=== PATIENT | female | born 1975 | race Caucasian/White ===

== ENCOUNTER 2020-02-12 13:09 | Emergency (ER) | payer OTHER, SELFPAY | END 2020-02-12 13:39 | disposition home or self-care (01) | LOC: NAV ERS 13:09 | DX: K02.9 Dental caries, unspecified (principal); I10 Essential (primary) hypertension; F17.210 Nicotine dependence, cigarettes, uncomplicated | CPT/HCPCS: 99282 ==

== ENCOUNTER 2020-04-24 13:10 | Emergency (ER) | payer SELFPAY ==
--- NOTE | 2020-04-24 13:33 | RAD ---
XR Forearm Rt 2 View STANDARD HISTORY: Injury, right forearm pain FINDINGS: The right radius and ulna appear intact.
--- NOTE | 2020-04-24 13:33 | RAD ---
Exam:Right elbow 4 views HISTORY: Pain. Injury. COMPARISON: None FINDINGS: No joint effusion. No fractures or malalignment. Preserved joint spaces. IMPRESSION: Posttraumatic change
== END 2020-04-24 13:45 | disposition home or self-care (01) ==
LOC: NAV ERS 13:10
DX: S40.021A Contusion of right upper arm, initial encounter (principal); I10 Essential (primary) hypertension; G43.909 Migraine, unspecified, not intractable, without status migrainosus; F17.210 Nicotine dependence, cigarettes, uncomplicated; W22.8XXA Striking against or struck by other objects, initial encounter

== ENCOUNTER 2022-07-16 15:08 | Emergency (ER) | payer BC ==
[~2022-07-16 15:08] MED LIST: Iopamidol 370 76% 100 ML VIAL ONE
[2022-07-16] MEDS ORDERED: Morphine 4 MG/ML VIAL ONE (15:47)
[2022-07-16] MEDS ORDERED: Sodium Chloride 0.9% 1,000 ML ONE (15:47)
[2022-07-16] MEDS ORDERED: Ondansetron PF 4 MG/2 ML Vial ONE (15:47)
[2022-07-16 16:21] LABS: #Basophils 0.1 thou/uL (0.0-0.2); #Eosinphils 0.2 thou/uL (0.0-0.7); #Lymphocytes 2.8 thou/uL (1.20-3.40); #Monocytes 0.9 thou/uL (0.11-0.59); #Neutrophils 7.1 thou/uL (1.40-6.50); %Basophils 1.2 % (0.0-1.0); %Eosinophils 2.1 % (0.0-10.0); %Lymphocytes 24.9 % (21.0-51.0); %Monocytes 8.2 % (0.0-10.0); %Neutrophils 63.6 % (42.0-75.0); Mean Corpuscular HGB CONC 33.4 g/dL (32.0-36.0); Mean Corpuscular Hemoglobin 32.7 pg (27.0-31.0); Mean Corpuscular Volume 97.8 fl (78.0-98.0); Mean Platelet Volume 6.6 fL (7.4-10.4); Platelet Count 481 10x3/uL (130-400); Red Blood Cell (RBC) Count 4.58 mill/uL (4.20-5.40); White Blood Cell (WBC) Count 11.2 10x3/uL (4.8-10.8)
[2022-07-16 16:27] LABS: Bilirubin Negative (Negative); Blood, Urine Trace (Negative); Clarity Slightly Cloudy (Clear); Glucose, Urine (Dipstick) Negative (Negative); Ketone, Urine Negative (Negative); Leukocyte Negative (Negative); Nitrite Negative (Negative); Protein, Urine (Dipstick) Negative (Neg-Trace); Specific Gravity, Urine 1.015 (1.005-1.030); Urobilinogen 0.2 mg/dL (Less than 2)
[2022-07-16 16:30] LABS: Pregnancy Test - Urine (BHCG) Negative (Negative); Pregu Control Background? CLEAR/WHITE (CLR/WHITE); Pregu Control Bar Appear? YES (CONTROL BAR); Specific Gravity 1.015 (1.002-1.036)
[2022-07-16 16:32] LABS: RBC/HPF 0-3 HPF (0-3); WBC/HPF 0-3 HPF (0-3)
[2022-07-16 16:33] LABS: Bacteria/HPF Rare-Few HPF (None Seen)
[2022-07-16 16:44] LABS: ALT (SGPT) 10 U/L (8-55); Albumin 4.3 g/dL (3.5-5.0); Alkaline Phosphatase 50 U/L (40-110); Anion Gap 13 mmol/L (10-20); BUN (Urea Nitrogen) 13 mg/dL (7.0-18.7); Bilirubin, Total 0.2 mg/dL (0.2-1.2); Calc. Creatinine Clearance 0 mL/min (70-130); Calcium 9.6 mg/dL (7.8-10.44); Carbon Dioxide 21 mmol/L (22-29); Chloride 106 mmol/L (98-107); Estimated GFR 109; Globulin 3.4 g/dL (2.4-3.5); Glucose 88 mg/dL (70-105); Potassium 4.2 mmol/L (3.5-5.1); Protein, Total 7.7 g/dL (6.0-8.3); Sodium 136 mmol/L (136-145)
[2022-07-16] MEDS ORDERED: Morphine 2 MG/ML VIAL ONE (18:48)
[2022-07-16] MEDS ORDERED: HYDROcodone/Acetaminophen 5/325 mg Tablet ONE (19:20)
== END 2022-07-16 19:42 | disposition home or self-care (01) ==
LOC: NAV ERS 15:08
DX: R10.32 Left lower quadrant pain (principal); G43.909 Migraine, unspecified, not intractable, without status migrainosus; F17.210 Nicotine dependence, cigarettes, uncomplicated
CPT/HCPCS: 74177; 80053; 81003; 81015; 81025; 83605; 85025; 96361; 96374; 96375; 96376; J2270; J2405; J7050; Q9967

== ENCOUNTER 2023-03-21 13:56 | Outpatient (CLI) | payer BC | END 2023-03-21 13:57 | disposition home or self-care (01) | LOC: NAV RAD 13:56 | PROVIDERS: ATTEND Nurse Practitioner Family | DX: M25.552 Pain in left hip (principal) ==